=== PATIENT | female | born 1960 ===

== ENCOUNTER 2022-10-09 13:00 | Emergency (ER) | payer OTHER ==
[~2022-10-09] VITALS: Ht 172.7 cm; Wt 90.7 kg
[2022-10-09] MEDS ORDERED: IBUP800 PO (16:32)
== END 2022-10-09 16:55 | disposition home or self-care (01) ==
LOC: ER 13:00
DX: S09.90XA Unspecified injury of head, initial encounter (principal); S00.81XA Abrasion of other part of head, initial encounter; S46.912A Strain of unspecified muscle, fascia and tendon at shoulder and upper arm level, left arm, initial encounter; V86.52XA Driver of snowmobile injured in nontraffic accident, initial encounter
CPT/HCPCS: 70450; 72125; 73030; 99285-25; A9270